=== PATIENT | female | born 1985 | race American Indian/Alaskan Native ===

== ENCOUNTER 2018-10-26 23:51 | Emergency (ER) | payer OTHER ==
--- NOTE | 2018-10-27 00:22 | Emergency Department Report ---
ED Neuro Deficit HPI - General Chief Complaint: Neuro Symptoms/Deficit Stated Complaint: POSS CVA Time Seen by Provider: 10/27/18 00:09 Source: patient Mode of arrival: Ambulatory Limitations: No Limitations - History of Present Illness Initial Comments: 33 yo with face droop * concerned about some seasonal allergy symptoms earlier today with L eye teari ng and nose running * once home at about 1600 took a benadryl and took a nap * up at 2100 and noted L face droop, difficulty closing L eye, drooling out of L side of mouth * no similar symptoms in the past * no arm/leg symptoms on left side * past stroke ~5 years ago with R side numbness that resolved over time * to ER for further evaluation * arrived at 2351 * call to teleneuro at 2403 * connected at 2407 * eval at 2411 * NIHSS 1 for L side LMN droop * 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 --> no tPA or intervention indicated Last Observed Normal: 16:00 - Related Data Home Medications: Previous Rx's Medication Instructions Recorded Last Taken Type HYDROcodone/APAP 5-325 [[place] 1 - 2 each PO Q6HR PRN #14 tablet 05/23/16 Unknown Rx 5/325] Ibuprofen [Motrin 800 MG tab] 800 mg PO Q8HR PRN #20 tablet 05/23/16 Unknown Rx Penicillin Vk [Veetids TAB] 250 mg PO QID #28 tablet 05/23/16 Unknown Rx Allergies/Adverse Reactions: Allergies Allergy/AdvReac Type Severity Reaction Status Date / Time No Known Allergies Allergy Unverified 05/23/16 10:56 ED Review of Systems ROS: Stated complaint: POSS CVA Other details as noted in HPI ED Past Medical Hx - Past Medical History Hx Hypertension: Yes - Surgical History Additional Surgical History: tubal ligation - Social History Smoking Status: Current Every Day Smoker Substance Use Type: Alcohol - Medications Home Medications: Home Medications Medication Instructions Recorded Confirmed Last Taken Type HYDROcodone/APAP 5-325 [[place] 1 - 2 each PO Q6HR PRN #14 tablet 05/23/16 Unknown Rx 5/325] Ibuprofen [Motrin 800 MG tab] 800 mg PO Q8HR PRN #20 tablet 05/23/16 Unknown Rx Penicillin Vk [Veetids TAB] 250 mg PO QID #28 tablet 05/23/16 Unknown Rx ED Neuro Physical Exam - General Limitations: No Limitations Suspected Stroke: Yes - NIHSS Assessment Interval: Baseline 1a. Level of Consciousness: alert/keenly responsive 1b. LOC Questions: answers both correctly 1c. LOC Commands: performs tasks correctly 2. Best Gaze: normal 3. Visual: no visual loss 4. Facial Palsy: minor paralysis (LMN pattern of weakness c/w Rodriguez's Pasy) 5b. Motor Arm Right: no drift 5a. Motor Arm Left: no drift 6a. Motor Leg Left: no drift 6b. Motor Leg Right: no drift 7. Limb Ataxia: absent 8. Sensory: normal 9. Best Language: no aphasia 10. Dysarthria: normal 11. Extinction/Inattention: no abnormality Total Score: 1 Stroke Severity: Minor Stroke ED Course Vital Signs 10/26/18 23:59 Temperature 98.5 F Pulse Rate 103 H Respiratory 18 Rate Blood Pressure 232/158 O2 Sat by Pulse 100 Oximetry - Consultations Consultation #1: 10/27/18 00:22 Teleneurology COnsult Assessment/Plan L Rodriguez's Palsy * L LMN droop * no other left side weakness * BP is elevated * NIHSS 1, LMN pattern of weakness with eye tearing consistent with Rodriguez's Palsy * no tPA or intervention indicated as this is not a stroke * advise 5-7 days of acycolvir (400 5x/day) and prednisone (60 mg daily) * ocular care advised (artificial tears daytime, patching at night) while eye closure impaired * OK D/C home if BP under better control per ED physician * discussed with ED physician at the bedside - Lab Data Lab Results 10/27/18 Range/Units 00:02 POC Glucose 99 (70-105) Critical care attestation.: If time is entered above; I have spent that time in minutes in the direct care of this critically ill patient, excluding procedure time. 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
--- NOTE | 2018-10-27 00:24 | Emergency Department Report ---
ED Neuro Deficit HPI - General Chief Complaint: Neuro Symptoms/Deficit Stated Complaint: POSS CVA Time Seen by Provider: 10/27/18 00:09 Source: patient Mode of arrival: Ambulatory Limitations: No Limitations - History of Present Illness Initial Comments: Patient is 33 years old female with history of hypertension. Patient presented to the ER complaining of left facial droop and numbness. Patient stated that she woke up yesterday with a watery left eye. Patient stated that she took Benadryl and went to sleep and when she woke up around 9 PM she found that she has left facial droop and numbness. Patient denied any extremity weakness, numbness or tingling sensation. Patient denied any headache, shortness of breath, nausea or vomiting. Stroke protocol initiated at triage. Patient moved to a CT suite. Telemetry neurology consult obtained. -: Last night Location: left face Presenting Symptoms: Present: Facial Droop/Numbness History of same: No Place: home Severity: moderate - Related Data Home Medications: Previous Rx's Medication Instructions Recorded Last Taken Type HYDROcodone/APAP 5-325 [[place] 1 - 2 each PO Q6HR PRN #14 tablet 05/23/16 Unknown Rx 5/325] Ibuprofen [Motrin 800 MG tab] 800 mg PO Q8HR PRN #20 tablet 05/23/16 Unknown Rx Penicillin Vk [Veetids TAB] 250 mg PO QID #28 tablet 05/23/16 Unknown Rx Allergies/Adverse Reactions: Allergies Allergy/AdvReac Type Severity Reaction Status Date / Time No Known Allergies Allergy Unverified 05/23/16 10:56 ED Review of Systems ROS: Stated complaint: POSS CVA Other details as noted in HPI Comment: All other systems reviewed and negative Constitutional: denies: chills, fever Respiratory: denies: cough, orthopnea, shortness of breath, SOB with exertion, SOB at rest Cardiovascular: chest pain Gastrointestinal: denies: abdominal pain, nausea Musculoskeletal: denies: back pain Neurological: denies: headache, weakness, numbness, paresthesias, confusion, abnormal gait ED Past Medical Hx - Past Medical History Hx Hypertension: Yes - Surgical History Additional Surgical History: tubal ligation - Social History Smoking Status: Current Every Day Smoker Substance Use Type: Alcohol - Medications Home Medications: Home Medications Medication Instructions Recorded Confirmed Last Taken Type HYDROcodone/APAP 5-325 [[place] 1 - 2 each PO Q6HR PRN #14 tablet 05/23/16 Unknown Rx 5/325] Ibuprofen [Motrin 800 MG tab] 800 mg PO Q8HR PRN #20 tablet 05/23/16 Unknown Rx Penicillin Vk [Veetids TAB] 250 mg PO QID #28 tablet 05/23/16 Unknown Rx ED Neuro Physical Exam - General Limitations: No Limitations General appearance: alert, in no apparent distress Suspected Stroke: Yes - Head Head exam: Present: atraumatic, normocephalic, normal inspection - Eye Eye exam: Present: normal appearance, PERRL - ENT ENT exam: Present: normal exam, normal orophraynx, mucous membranes moist - Neck Neck exam: Present: normal inspection, full ROM. Absent: tenderness, meningismus, lymphadenopathy, thyromegaly - Respiratory Respiratory exam: Present: normal lung sounds bilaterally - Cardiovascular Cardiovascular Exam: Present: regular rate, normal rhythm, normal heart sounds - GI/Abdominal GI/Abdominal exam: Present: soft, normal bowel sounds. Absent: distended, tenderness, guarding, rebound, rigid, organomegaly, mass, bruit, pulsatile mass - Extremities Exam Extremities exam: Present: normal inspection, full ROM, normal capillary refill - Back Exam Back exam: Present: normal inspection, full ROM. Absent: CVA tenderness (R), CVA tenderness (L), muscle spasm, paraspinal tenderness, vertebral tenderness - Neurological Exam Neurological exam: Present: alert, oriented X3, CN II-XII intact - NIHSS Assessment Interval: Baseline 1a. Level of Consciousness: alert/keenly responsive 1b. LOC Questions: answers both correctly 1c. LOC Commands: performs tasks correctly 2. Best Gaze: normal 3. Visual: no visual loss 4. Facial Palsy: minor paralysis 5b. Motor Arm Right: no drift 5a. Motor Arm Left: no drift 6a. Motor Leg Left: no drift 6b. Motor Leg Right: no drift 7. Limb Ataxia: absent 8. Sensory: normal 9. Best Language: no aphasia 10. Dysarthria: normal 11. Extinction/Inattention: no abnormality Total Score: 1 Stroke Severity: Minor Stroke - Psychiatric Psychiatric exam: Present: normal mood - Skin Skin exam: Present: warm, intact, normal color ED Course Vital Signs 10/26/18 10/27/18 10/27/18 23:59 00:19 00:30 Temperature 98.5 F Pulse Rate 103 H 85 Respiratory 18 14 Rate Blood Pressure 232/158 222/144 196/126 O2 Sat by Pulse 100 100 100 Oximetry 10/27/18 10/27/18 00:41 00:45 Temperature Pulse Rate 86 87 Respiratory 13 Rate Blood Pressure 196/126 207/130 O2 Sat by Pulse 100 Oximetry - Lab Data Result diagrams: 10/27/18 00:17 10/27/18 00:17 Lab Results 10/27/18 10/27/18 10/27/18 Range/Units 00:02 00:17 00:17 WBC 7.6 (4.5-11.0) K/mm3 RBC 4.44 (3.65-5.03) M/mm3 Hgb 9.8 L (10.1-14.3) gm/dl Hct 31.1 (30.3-42.9) % MCV 70 L (79-97) fl MCH 22 L (28-32) pg MCHC 32 (30-34) % RDW 20.7 H (13.2-15.2) % Plt Count 208 (140-440) K/mm3 Lymph % (Auto) 25.4 (13.4-35.0) % Woods % (Auto) 7.9 H (0.0-7.3) % Eos % (Auto) 4.7 H (0.0-4.3) % Baso % (Auto) 0.6 (0.0-1.8) % Lymph # 1.9 (1.2-5.4) K/mm3 Woods # 0.6 (0.0-0.8) K/mm3 Eos # 0.4 (0.0-0.4) K/mm3 Baso # 0.0 (0.0-0.1) K/mm3 Seg Neutrophils % 61.4 (40.0-70.0) % Seg Neutrophils # 4.7 (1.8-7.7) K/mm3 PT 12.8 (12.2-14.9) Sec. INR 0.91 (0.87-1.13) APTT 28.0 (24.2-36.6) Sec. Thrombin Time 15.8 (15.1-19.6) Sec. Sodium (137-145) mmol/L Potassium (3.6-5.0) mmol/L Chloride (98-107) mmol/L Carbon Dioxide (22-30) mmol/L Anion Gap mmol/L BUN (7-17) mg/dL Creatinine (0.7-1.2) mg/dL Estimated GFR ml/min BUN/Creatinine Ratio % Glucose (65-100) mg/dL POC Glucose 99 (70-105) Calcium (8.4-10.2) mg/dL Troponin T (0.00-0.029) ng/mL 10/27/18 Range/Units 00:17 WBC (4.5-11.0) K/mm3 RBC (3.65-5.03) M/mm3 Hgb (10.1-14.3) gm/dl Hct (30.3-42.9) % MCV (79-97) fl MCH (28-32) pg MCHC (30-34) % RDW (13.2-15.2) % Plt Count (140-440) K/mm3 Lymph % (Auto) (13.4-35.0) % Woods % (Auto) (0.0-7.3) % Eos % (Auto) (0.0-4.3) % Baso % (Auto) (0.0-1.8) % Lymph # (1.2-5.4) K/mm3 Woods # (0.0-0.8) K/mm3 Eos # (0.0-0.4) K/mm3 Baso # (0.0-0.1) K/mm3 Seg Neutrophils % (40.0-70.0) % Seg Neutrophils # (1.8-7.7) K/mm3 PT (12.2-14.9) Sec. INR (0.87-1.13) APTT (24.2-36.6) Sec. Thrombin Time (15.1-19.6) Sec. Sodium 139 (137-145) mmol/L Potassium 3.9 (3.6-5.0) mmol/L Chloride 104.8 (98-107) mmol/L Carbon Dioxide 22 (22-30) mmol/L Anion Gap 16 mmol/L BUN 25 H (7-17) mg/dL Creatinine 1.9 H (0.7-1.2) mg/dL Estimated GFR 37 ml/min BUN/Creatinine Ratio 13 % Glucose 94 (65-100) mg/dL POC Glucose (70-105) Calcium 8.7 (8.4-10.2) mg/dL Troponin T < 0.010 (0.00-0.029) ng/mL - EKG Data -: EKG Interpreted by Me EKG shows normal: sinus rhythm Rate: normal Interpretation: no acute changes - Radiology Data Radiology results: report reviewed - Medical Decision Making Patient is 33 years old female with history of hypertension. Patient presented to the ER complaining of left facial droop and numbness. Patient stated that she woke up yesterday with a watery left eye. Patient stated that she took Benadryl and went to sleep and when she woke up around 9 PM she found that she has left facial droop and numbness. Patient denied any extremity weakness, numbness or tingling sensation. Patient denied any headache, shortness of breath, nausea or vomiting. Stroke protocol initiated at triage. Patient moved to a CT suite. Telemetry neurology consult obtained. Patient evaluated by telemetry neurology through video conference by Dr. Dino Cummins. Dr. Cummins distended that patient's symptoms is consistent with Rodriguez's palsy and no evidence of stroke. He advised to start patient on prednisone 60 mg for 7 days and acyclovir for 7 days also. Critical Care Time: Yes Critical care time in (mins) excluding proc time.: 30 Critical care attestation.: If time is entered above; I have spent that time in minutes in the direct care of this critically ill patient, excluding procedure time. ED Disposition Clinical Impression: Rodriguez's palsy, Malignant hypertension Disposition: OP ADMIT IP TO THIS HOSP Is pt being admited?: No Condition: Stable Instructions: Rodriguez Palsy (ED), Hypertension (ED) Referrals: GLENN CHUNG MD [Primary Care Provider] - 3-5 Days
[2018-10-27] MEDS ORDERED: CATAPRES PO ONE (00:29)
[2018-10-27 00:40] LABS: INR 0.91 (0.87-1.13); Thrombin Time 15.8 Sec. (15.1-19.6)
[2018-10-27 00:42] LABS: BUN/Creatinine Ratio 13; Blood Urea Nitrogen 25 mg/dL (7-17); Calcium 8.7 mg/dL (8.4-10.2); Hemolysis Index 1
[2018-10-27 00:47] LABS: Basophils % (Auto) 0.6 % (0.0-1.8); Eosinophils # (Auto) 0.4 K/mm3 (0.0-0.4); Eosinophils % (Auto) 4.7 % (0.0-4.3); Hematocrit 31.1 % (30.3-42.9); Hemoglobin 9.8 gm/dl (10.1-14.3); Lymphocytes # (Auto) 1.9 K/mm3 (1.2-5.4); Lymphocytes % (Auto) 25.4 % (13.4-35.0); Mean Corpuscular HGB Conc 32 % (30-34); Mean Corpuscular Volume 70 fl (79-97); Monocytes # (Auto) 0.6 K/mm3 (0.0-0.8); Monocytes % (Auto) 7.9 % (0.0-7.3); Platelet Count 208 K/mm3 (140-440); Red Blood Count 4.44 M/mm3 (3.65-5.03)
[2018-10-27 00:49] LABS: Red Cell Distribution Width 20.7 % (13.2-15.2)
[2018-10-27] MEDS ORDERED: NORMODYNE PO ONE (02:18)
[2018-10-27] MEDS ORDERED: NORMODYNE ONE (02:21)
[2018-10-27] MEDS ORDERED: NITRO-BID 2% TP STA (03:30)
[2018-10-27] MEDS ORDERED: NITRO-BID 2% TP ONE (03:33)
[2018-10-27 06:48] VITALS: BP 145/98
== END 2018-10-27 04:15 | disposition admitted as inpatient to this hospital (09) ==
LOC: ED 23:51
DX: G51.0 Bell's palsy (principal); I10 Essential (primary) hypertension; F17.200 Nicotine dependence, unspecified, uncomplicated
CPT/HCPCS: 36415; 70450; 80048; 82962; 84484; 85025; 85610; 85670; 85730; 93005; 93010